=== PATIENT | male | born 1975 | race Two or more races ===

== ENCOUNTER 2016-11-27 13:49 | Emergency (ER) | payer OTHER ==
[~2016-11-27] VITALS: Ht 165.1 cm; Wt 79.4 kg
--- NOTE | 2016-11-27 14:03 | Emergency Room Report ---
History of Present Illness General Chief Complaint: Upper Extremity Injury Source: Patient Present Illness HPI The patient is a 41-year-old male presenting for laceration to the right thumb. Pt R hand dominant. He states that he was at work when a pallet mauricio fell onto the digit. He noticed immediate pain and bleeding. Pain is an 8/10 dull ache and does not radiate. Worse with movement. He denies numbness or tingling. Last tetanus shot was one year prior. He denies any other injury or symptoms Allergies: Coded Allergies: No Known Allergies (Unverified , 11/27/16) Patient History Past Medical History: see triage record Pertinent Family History: none Reviewed Nursing Documentation: PMH: Agreed, PSxH: Agreed Nursing Documentation-PMH Past Medical History: No Stated History Review of Systems All Other Systems: negative except mentioned in HPI Physical Exam Vital Signs Date Time Temp Pulse Resp B/P (MAP) Pulse Ox O2 Delivery O2 Flow Rate FiO2 11/27/16 13:55 98.8 78 18 129/86 95 Room Air Sp02 EP Interpretation: reviewed, normal General Appearance: no apparent distress, alert, GCS 15, non-toxic Head: normocephalic, atraumatic Eyes: bilateral eye normal inspection, bilateral eye PERRL ENT: hearing grossly normal, normal pharynx, no angioedema, normal voice Musculoskeletal: decreased range of motion - Flexion at 45 degrees for R thumb IPJ, tender - TTP over the R distal thumb over laceration site Neurologic: alert, oriented x3, responsive, motor strength/tone normal, sensory intact, speech normal Psychiatric: judgement/insight normal, memory normal, mood/affect normal, no suicidal/homicidal ideation Skin: normal color, no rash, warm/dry, well hydrated, laceration - 3cm linear laceration to the R palmar surface of the distal thumb Lymphatic: no adenopathy Medical Decision Making PA Attestation Dr. Garcia is my supervising physician. Patient management was discussed with my supervising physician Diagnostic Impression: Primary Impression: Open fracture ER Course The patient is a 41-year-old male presenting for laceration to the right thumb. Ddx considered include but not limited to ortho fracture, sprain/strain, fracture, contusion PE: NAD R hand: There is A 3 cm linear laceration to the palmar surface distal to IP joint. Flexion limited to 45 the DIP joint. Sensation is intact. Refill less than 2 seconds The wound was cleaned with NS and betadine. R hand xray shows fracture of distal phalanx Dr. Nahid Potts hand surgeon consulted and has arrived to the ER. The wound is closed and the patient was advised to followup with him in one week. This was all interpreted to the patient. He is given information for followup. He is given prescription for Keflex and pain medication. ER precautions given Other X-Ray Diagnostic Results Other X-Ray Diagnostic Results : X-Ray ordered: R hand # of Views/Limited Vs Complete: 3 View Indication: Pain EP Interpretation: Yes Interpretation: no dislocation, no soft tissue swelling, other - Fracture Impression: Other - Distal phalanx fracture Electronically Signed by: MD TOYA Christianson Scribe Text I am acting as scribe for my supervising physician. My supervising physician's interpretation of the R hand xrays are there are no fractures, dislocations or soft tissue swelling. Last Vital Signs Date Time Temp Pulse Resp B/P (MAP) Pulse Ox O2 Delivery O2 Flow Rate FiO2 11/27/16 13:55 98.8 78 18 129/86 95 Room Air Status: improved Disposition: HOME, SELF-CARE Condition: Improved Scripts Tramadol Hcl* (ULTRAM*) 50 Mg Tablet 50 MG ORAL Q6H Y for For Pain, #10 TAB 0 Refills Prov: TERZIAN,SEMAJ P.A. 11/27/16 Ibuprofen* (MOTRIN*) 600 Mg Tablet 600 MG ORAL Q8H Y for For Pain, #30 TAB 0 Refills Prov: TERZIAN,SEMAJ P.A. 11/27/16 Cephalexin* (KEFLEX*) 500 Mg Capsule 500 MG ORAL EVERY 12 HOURS, #14 CAP 0 Refills Prov: TERZIAN,SEMAJ P.A. 11/27/16 TERZIAN,SEMAJ P.A. Nov 27, 2016 14:03
[2016-11-27] MEDS ORDERED: Bacitracin Oint UD TOPIC ONE (14:45)
[2016-11-27] MEDS ORDERED: Lidocaine 1% MPF 10mg/ml 5ml INJ ONE (14:45)
--- NOTE | 2016-11-27 15:13 | Diagnostic Imaging Report ---
Indication: pain Findings: 3 views of the right hand were obtained. Acute fracture of the distal phalanx of the thumb noted. Fracture appears nondisplaced. Exam is negative otherwise. Impression: Acute fracture at the base of the distal phalange of the film
[2016-11-27 15:30] VITALS: BP 129/86
[2016-11-27] MEDS ORDERED: IBUPROFEN600 MG ORAL (17:32)
[2016-11-27] MEDS ORDERED: CEPHALEXIN500 MG ORAL (17:32)
[2016-11-27] MEDS ORDERED: TRAMADOL HCL50 MG ORAL (17:32)
[2016-11-27 17:45] VITALS: BP 122/80
== END 2016-11-27 17:46 | disposition home or self-care (01) ==
LOC: EMR 14:25
DX: S62.521B Displaced fracture of distal phalanx of right thumb, initial encounter for open fracture (principal); W20.8XXA Other cause of strike by thrown, projected or falling object, initial encounter; Y92.69 Other specified industrial and construction area as the place of occurrence of the external cause; Y99.0 Civilian activity done for income or pay
CPT/HCPCS: 99284